=== PATIENT | female | born 1995 | race Caucasian/White ===

== ENCOUNTER 2017-01-27 15:16 | Outpatient (CLI) | payer BC | END 2017-01-27 18:45 | disposition home or self-care (01) | LOC: SRD 15:16 | PROVIDERS: ATTEND Internal Medicine | DX: J32.2 Chronic ethmoidal sinusitis (principal); J32.3 Chronic sphenoidal sinusitis; J32.1 Chronic frontal sinusitis | CPT/HCPCS: 70220-TC; 71020-TC ==